=== PATIENT | male | born 1965 | race Caucasian/White ===

== ENCOUNTER 2017-06-18 20:02 | Emergency (ER) | payer MEDICAID ==
[2017-06-18 21:17] VITALS: PULSE 89; O2SAT 96
--- NOTE | 2017-06-18 22:14 | C.PDOC ---
History Of Present Illness Patient presents to the ED seeking prescription for Dilaudid. Patient was seen in [facility] yesterday and has prescription for Protonix and Dilaudid in his bag in the ED. Denies fever, chills, nausea, or vomiting. Time Seen by Provider: 06/18/17 22:13 Chief Complaint (Nursing): Abdominal Pain History Per: Patient History/Exam Limitations: no limitations Severity: None Pain Scale Rating Of: 0 Radiation Of Pain To:: None Associated Symptoms: denies: Fever, Chills, Nausea, Vomiting Exacerbating Factors: None Alleviating Factors: None Recent travel outside of the [place]: No Additional History Per: Prior Records Past Medical History Reviewed: Historical Data, Nursing Documentation, Vital Signs Vital Signs: Last Vital Signs Temp 98.5 F 06/18/17 22:51 Pulse 89 06/18/17 22:51 Resp 18 06/18/17 22:51 BP 120/80 06/18/17 22:51 Pulse Ox 96 06/18/17 22:51 - Medical History PMH: Pancreatitis Family History: States: No Known Family Hx - Social History Hx Alcohol Use: No Hx Substance Use: No Review Of Systems Constitutional: Negative for: Fever, Chills Cardiovascular: Negative for: Chest Pain, Palpitations Respiratory: Negative for: Cough, Shortness of Breath Gastrointestinal: Negative for: Nausea, Vomiting, Abdominal Pain Physical Exam - Physical Exam Appears: Non-toxic, No Acute Distress Skin: Warm, Dry Head: Atraumatic Eye(s): bilateral: Normal Inspection Oral Mucosa: Moist Chest: Symmetrical, No Deformity Cardiovascular: Rhythm Regular, No Murmur Respiratory: No Rales, No Rhonchi, No Wheezing Gastrointestinal/Abdominal: Soft, No Tenderness (minimal diffuse abdominal tenderness), No Distention, No Guarding, No Rebound Extremity: Normal ROM, No Tenderness Neurological/Psych: Oriented x3 Gait: Steady ED Course And Treatment O2 Sat by Pulse Oximetry: 96 (RA) Disposition Counseled Patient/Family Regarding: Studies Performed, Diagnosis, Need For Followup - Disposition Referrals: [facility] [Outside] Disposition: HOME/ ROUTINE Disposition Time: 22:13 Condition: FAIR Instructions: Medicine Refill (ED) Forms: [email or web address] (Romansh) - Clinical Impression Clinical Impression: Abdominal pain, Medicine refill - Scribe Statement The provider has reviewed the documentation as recorded by the Yannickibmadai Arenas All medical record entries made by the Yannickibmadai were at my direction and personally dictated by me. I have reviewed the chart and agree that the record accurately reflects my personal performance of the history, physical exam, medical decision making, and the department course for this patient. I have also personally directed, reviewed, and agree with the discharge instructions and disposition.
[2017-06-18 22:51] VITALS: BP 120/80; RESP 18; TEMP 98.5
== END 2017-06-18 22:59 | disposition home or self-care (01) ==
LOC: C.ER 20:02
DX: Z76.0 Encounter for issue of repeat prescription (principal); R10.9 Unspecified abdominal pain